=== PATIENT | female | born 1940 | race Caucasian/White ===

== ENCOUNTER 2017-06-21 16:39 | Emergency (ER) | payer MEDICARE ==
[~2017-06-21] VITALS: Ht 160 cm; Wt 64.5 kg
[2017-06-21 16:51] VITALS: TEMP 98
[2017-06-21 17:38] LABS: BASO % 0.2 % (0.0-2.0); GRAN # 7.3 (1.4-6.5); GRAN % 86.8 % (42.2-75.2); HEMATOCRIT 40.6 % (37.0-47.0); HEMOGLOBIN 13.9 g/dl (12.5-16.0); LYMPH # 0.6 (1.2-3.4); LYMPH % 6.6 % (20.0-51.0); MEAN CELL VOLUME 88 fl (80.0-100.0); MEAN CORPUSCULAR HEMOGLOBIN 30 pg (27.0-31.0); MEAN CORPUSCULAR HGB CONC 34 g/dl (33.0-37.0); MEAN PLATELET VOLUME 10.7 fl (7.4-10.4); MONO # 0.5 (0.1-0.6); PLATELET COUNT 192 K/mm3 (130-400); RED BLOOD COUNT 4.62 M/mm3 (4.10-5.30); REDCELL DISTRIBUTION WIDTH-CV 13.9 % (11.5-14.5)
[2017-06-21 17:51] LABS: ALBUMIN 4.7 gm/dL (3.5-5.0); BILIRUBIN,TOTAL 0.8 mg/dL (0.0-1.0); C-REACTIVE PROTEIN 2.3 mg/dL (0.0-0.9); CALCIUM 9.1 mg/dL (8.4-10.2); CREATININE, serum 0.49 mg/dL (0.52-1.25); POTASSIUM 3.4 mmol/L (3.4-5.0); TOTAL PROTEIN 8.2 gm/dL (6.4-8.2)
[2017-06-21 17:53] LABS: INFLUENZA A NEGATIVE; INFLUENZA B NEGATIVE
[2017-06-21 18:54] LABS: COLLECTION METHOD CLEAN CATCH
[2017-06-21 19:01] LABS: MUCOUS Present /lpf; PH 7 (5-8); SQUAMOUS EPITHELIAL None Seen /hpf; URINE APPEARANCE Clear; URINE BACTERIA None Seen /hpf; URINE BILIRUBIN Negative (NEGATIVE); URINE BLOOD 1+ (NEGATIVE); URINE COLOR Straw; URINE GLUCOSE 3+ (NEGATIVE); URINE KETONE 1+ (NEGATIVE); URINE LEUKOCYTE ESTERASE Negative (NEGATIVE); URINE NITRATE Negative (NEGATIVE); URINE PROTEIN(semi-quant) Negative (NEGATIVE); URINE UROBILINOGEN Negative (NEGATIVE)
[2017-06-21] MEDS ORDERED: ZOFRAN 4MG T4 MG/TAB PO (19:33)
[2017-06-21 19:59] VITALS: BP 167/85; PULSE 67
== END 2017-06-21 20:11 | disposition home or self-care (01) ==
LOC: COL.ER 16:39
PROVIDERS: Emergency Medicine
DX: B34.9 Viral infection, unspecified (principal); I10 Essential (primary) hypertension
CPT/HCPCS: J1885; J2405; J7030

== ENCOUNTER → 2021-06-26 | Outpatient (CLI) | payer OTHER ==
[~2021-06-26] MED LIST: ZOFRAN 4MG T4 MG/TAB PO
== END ==
LOC: COL.RAD 13:42
DX: N20.0 Calculus of kidney (principal); K86.89 Other specified diseases of pancreas; K80.20 Calculus of gallbladder without cholecystitis without obstruction; M43.8X6 Other specified deforming dorsopathies, lumbar region

== ENCOUNTER 2021-06-27 15:10 | Emergency (ER) | payer OTHER ==
[~2021-06-27] VITALS: Ht 7.6 cm; Wt 63.6 kg
[2021-06-27 15:22] VITALS: TEMP 98
[2021-06-27 15:50] LABS: BASO % 0.6 % (0.0-2.0); EOS % 0.8 % (0.0-4.0); GRAN # 2.5 K/mm3 (1.4-6.5); GRAN % 70.2 % (42.2-75.2); HEMATOCRIT 40.2 % (37.0-47.0); HEMOGLOBIN 13.6 g/dl (12.5-16.0); LYMPH # 0.3 K/mm3 (1.2-3.4); LYMPH % 9.6 % (20.0-51.0); MEAN CELL VOLUME 87 fl (80.0-100.0); MEAN CORPUSCULAR HEMOGLOBIN 29 pg (27-31); MEAN CORPUSCULAR HGB CONC 34 g/dl (33.0-37.0); MEAN PLATELET VOLUME 10.3 fl (7.4-10.4); MONO # 0.7 K/mm3 (0.1-0.6); MONO % 18.5 % (1.7-9.3); PLATELET COUNT 269 K/mm3 (130-400); RED BLOOD COUNT 4.62 M/mm3 (4.10-5.30); REDCELL DISTRIBUTION WIDTH-CV 13.5 % (11.5-14.5)
[2021-06-27 16:15] LABS: ALBUMIN 3.7 gm/dL (3.4-4.8); BILIRUBIN,TOTAL 0.5 mg/dL (0.2-1.2); CALCIUM 9.1 mg/dL (8.4-10.2); CREATININE, serum 0.63 mg/dL (0.57-1.11); MAGNESIUM 1.8 mg/dL (1.6-2.6); POTASSIUM 3.3 mmol/L (3.5-4.5); TOTAL PROTEIN 7.5 gm/dL (6.2-8.1)
[2021-06-27 16:48] LABS: COLLECTION METHOD CLEAN CATCH
[2021-06-27 16:54] LABS: MUCOUS Present (NOT PRESENT); PH 6 (5-8); SQUAMOUS EPITHELIAL 0-2 /hpf (0-10); URINE APPEARANCE Clear (CLEAR/HAZY); URINE BACTERIA Rare /hpf (NONE SEEN); URINE BILIRUBIN Negative (NEGATIVE); URINE BLOOD Negative (NEGATIVE); URINE COLOR Yellow (YELLOW); URINE GLUCOSE Negative (NEGATIVE); URINE KETONE 2+ (NEGATIVE); URINE LEUKOCYTE ESTERASE Negative (NEGATIVE); URINE NITRATE Negative (NEGATIVE); URINE PROTEIN(semi-quant) Negative (NEGATIVE); URINE UROBILINOGEN Negative (NEGATIVE)
[2021-06-27 18:25] VITALS: BP 170/101; PULSE 92
== END 2021-06-27 18:35 | disposition home or self-care (01) ==
LOC: COL.ER 15:10
PROVIDERS: Physician Assistant
DX: K86.9 Disease of pancreas, unspecified (principal); R14.0 Abdominal distension (gaseous); E87.6 Hypokalemia
CPT/HCPCS: J2405; J7030; Q9967

== ENCOUNTER → 2021-06-29 | Outpatient (CLI) | payer MEDICARE | LOC: COL.RAD 08:40 | DX: K80.20 Calculus of gallbladder without cholecystitis without obstruction (principal); K86.2 Cyst of pancreas; K76.9 Liver disease, unspecified ==